=== PATIENT | male | born 1965 | race Caucasian/White ===

== ENCOUNTER 2017-02-01 10:22 | Emergency (ER) | payer MEDICAID ==
[2017-02-01 10:30] VITALS: BP 99/82; TEMP 97.5
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
[2017-02-01 12:02] VITALS: PULSE 79; RESP 16; O2SAT 96
== END 2017-02-01 12:02 | disposition home or self-care (01) ==
DX: Z76.0 Encounter for issue of repeat prescription (principal); M25.562 Pain in left knee; M25.561 Pain in right knee; G89.29 Other chronic pain; F17.200 Nicotine dependence, unspecified, uncomplicated

== ENCOUNTER 2017-02-12 11:25 | Emergency (ER) | payer MEDICAID ==
[2017-02-12] MEDS ORDERED: NS 1,000 ML IV ONE (11:27)
[2017-02-12] MEDS ORDERED: HYDROmorphONE/DILAUDID 1 MG/ML SYR IVP ONE ×2 (11:27→12:50)
[2017-02-12] MEDS ORDERED: ONDANSETRON 4 MG/2 ML VIAL IVP ONE (11:27)
[2017-02-12 11:37] VITALS: RESP 16
[2017-02-12 11:40] LABS: % IMMATURE GRANULYOCYTES 0.3 % (0.0-1.1); ABSOLUTE IMMATURE GRANULOCYTES 0.02 10^3/uL (0.00-0.10); ADD DIFF? NO; ADD MORPH? NO; ADD SCAN? NO; ATYPICAL LYMPHOCYTE FLAG 10 (0-99); FRAGMENT RBC FLAG 0 (0-99); HEMATOCRIT 39.9 % (40.0-51.0); HEMOGLOBIN 13.3 g/dL (13.7-17.5); LEFT SHIFT FLG 0 (0-99); LIPEMIA HEMOLYSIS FLAG 80 (0-99); MEAN CELL HEMOGLOBIN 29.5 pg (27.9-34.1); MEAN CELL HEMOGLOBIN CONCENTR. 33.3 g/dL (32.4-36.7); MEAN CELL VOLUME 88.5 fL (81.5-99.8); MEAN PLATELET VOLUME 10.1 fL (8.7-11.7); PLATELET CLUMPS FLAG 0 (0-99); PLATELET COUNT 227 10^3/uL (150-400); RED BLOOD CELL COUNT 4.51 10^6/uL (4.40-6.38); RED CELL DISTRIBUTION WIDTH 13.5 % (11.5-15.2)
[2017-02-12 11:55] LABS: APTT 28.1 SEC (23.0-38.0); PROTIME(PATIENT) 13.1 SEC (12.0-15.0)
[2017-02-12 12:01] LABS: ETHANOL SERUM < 10 mg/dL (0-10)
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
[2017-02-12] MEDS ORDERED: SKIN ADHESIVE (DERMABOND) 1 EACH TP ONE (12:49)
[2017-02-12 13:29] LABS: ANION GAP 12 mEq/L (8-16); CALCIUM 9.1 mg/dL (8.5-10.4); CARBON DIOXIDE 21 mEq/l (22-31); CHLORIDE 109 mEq/L (97-110); CREATININE 0.8 mg/dL (0.7-1.3); GLOMERULAR FILTRATION RATE > 60; GLUCOSE 130 mg/dL (70-100); POTASSIUM 3.9 mEq/L (3.5-5.2); SODIUM 142 mEq/L (134-144)
[2017-02-12] MEDS ORDERED: HYDROCODONE/APAP 5/325 TAB PO ONE (15:17)
[2017-02-12 15:31] VITALS: BP 140/104; PULSE 92; TEMP 99; O2SAT 95
== END 2017-02-12 15:31 | disposition home or self-care (01) ==
LOC: EDUNIT#
PROC: 0HQ1XZZ Repair Face Skin, External Approach (ICD-10-PCS; principal; 2017-02-12)
DX: S52.202A Unspecified fracture of shaft of left ulna, initial encounter for closed fracture (principal); S50.11XA Contusion of right forearm, initial encounter; S01.81XA Laceration without foreign body of other part of head, initial encounter; S16.1XXA Strain of muscle, fascia and tendon at neck level, initial encounter; F17.200 Nicotine dependence, unspecified, uncomplicated; E86.9 Volume depletion, unspecified; Y00.XXXA Assault by blunt object, initial encounter
CPT/HCPCS: 96374; G0480; J1170; J2405

== ENCOUNTER 2017-03-29 19:42 | Emergency (ER) | payer MEDICAID ==
[2017-03-29 19:56] VITALS: BP 136/80; PULSE 106; RESP 16; TEMP 98.8; O2SAT 94
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
== END 2017-03-29 20:40 ==
DX: S52.202A Unspecified fracture of shaft of left ulna, initial encounter for closed fracture (principal); W18.39XA Other fall on same level, initial encounter; F17.200 Nicotine dependence, unspecified, uncomplicated

== ENCOUNTER 2017-11-03 11:54 | Emergency (ER) | payer MEDICAID ==
[2017-11-03 12:01] VITALS: BP 138/89
--- NOTE | 2017-11-03 12:13 | EDPHY ---
H & P Time Seen by Provider: 11/03/17 12:03 HPI/ROS: CHIEF COMPLAINT: "My penis is itching" x 6 weeks HISTORY OF PRESENT ILLNESS: 52-year-old homeless male complaining of itching to the glans of his penis for 6 weeks. No dysuria no hematuria increased frequency. No scrotal itching or tenderness. No trauma. No fever no chills. PHYSICAL EXAM (Prior to examination, patient consented to physical exam, hands were washed and my usual and customary physical exam procedures followed) 1) GENERAL: Well-developed, well-nourished, alert and oriented. Appears to be in no acute distress. 2) HEAD: Normocephalic 3) HEENT: sclera anicteric 4) LUNGS: Breathing comfortably. [5) : Circumcised, the glans of the penis is erythematous consistent with yeast . No lesions. Scrotum is nontender with no erythema, no signs of cellulitis or Shraddha's gangrene. Smoking Status: Never smoked Constitutional: Initial Vital Signs Temperature (C) 36.5 C 11/03/17 11:58 Heart Rate 90 11/03/17 11:58 Respiratory Rate 18 11/03/17 11:58 Blood Pressure 138/89 H 11/03/17 11:58 O2 Sat (%) 97 11/03/17 11:58 O2 Delivery Mode Room Air Allergies/Adverse Reactions: iodine Allergy (Verified 02/01/17 10:26) Penicillins Allergy (Verified 02/01/17 10:26) Home Medications: Medication Instructions Recorded Oxycodone HCl 02/01/17 Nystatin [Mycostatin Cream (RX)] 1 linh TOP BID #30 g 11/03/17 MDM/Departure - [facility] ED Course/Re-evaluation: 12:09 p.m.: Symptoms consistent with yeast balanitis. Doubt STD. Doubt cellulitis. Doubt Shraddha's gangrene. Plan will be initiation of topical antifungal cream. [facility] Care of patient under supervision of [secondary] supervising physician Dr Yang . - Depart Disposition: Home, Routine, Self-Care Clinical Impression: Candidal balanitis Condition: Good Instructions: Balanitis (ED) Prescriptions: Nystatin [Mycostatin Cream (RX)] 1 linh TOP BID #30 g Referrals: [facility],. [Clinic] - 5-7 days, call for appt.
== END 2017-11-03 12:25 | disposition home or self-care (01) ==
DX: B37.42 Candidal balanitis (principal)

== ENCOUNTER → 2017-12-27 | Outpatient (CLI) | payer MEDICAID | LOC: FIMAGING 16:44 | PROVIDERS: ATTEND Orthopaedic Surgery | DX: M79.605 Pain in left leg (principal); R22.42 Localized swelling, mass and lump, left lower limb ==